=== PATIENT | female | born 1960 | race Caucasian/White ===

== ENCOUNTER → 2023-11-25 14:40 | Outpatient (REF) | payer OTHER, SELFPAY | LOC: RAD 14:40 | PROVIDERS: ATTENDING PHYSICIAN Family Medicine; REFERRING PHYSICIAN Orthopaedic Surgery | DX: M79.671 Pain in right foot (principal) | CPT/HCPCS: 73610; 73630 ==

== ENCOUNTER → 2024-09-22 13:42 | Outpatient (REF) | payer OTHER, SELFPAY | LOC: WDC 13:42 | PROVIDERS: ATTENDING PHYSICIAN Family Medicine | DX: Z12.31 Encounter for screening mammogram for malignant neoplasm of breast (principal) | CPT/HCPCS: 77063; 77067 ==

== ENCOUNTER 2025-03-10 11:09 | Emergency (ER) | payer OTHER, SELFPAY ==
[2025-03-10 11:15] VITALS: BP 148/65
[2025-03-10 11:44] LABS: Hematocrit 39.8 % (37.0-47.0); Hemoglobin 13.3 g/dL (12.0-16.0); Mean Corp Hgb Conc. 33.4 g/dL (33.0-37.0); Mean Corpuscular Volume 91.7 fL (81.0-99.0); Nucleated Red Blood Cells % 0 %; Platelet Count 218 10^3/uL (130-400); Red Cell Dist. Width 12.3 % (11.5-14.5)
[2025-03-10 12:07] LABS: ALT (SGPT) 18 U/L (0-35); AST (SGOT) 18 U/L (14-36); Albumin 4.5 g/dl (3.5-5.0); Alkaline Phosphatase 98 U/L (38-126); Blood Urea Nitrogen 16 mg/dl (7-17); Calcium 9.8 mg/dl (8.4-10.2); Carbon Dioxide 34 mmol/L (22-30); Chloride 98 mmol/L (98-107); Glucose 144 mg/dl (70-99); Lipase 71 U/L (23-300); Potassium 4.8 mmol/L (3.5-5.1); Sodium 136 mmol/L (135-145); Total Protein 7.3 g/dl (6.3-8.2); eGFR > 60.00
--- NOTE | 2025-03-10 13:42 | ED.GENMED ---
History of Present Illness
General
Chief Complaint: Abdominal Pain
Source: patient and records
Exam Limitations: none
Time Seen by Provider: 03/10/25 13:09
Nursing documentation reviewed up to this point in time: agreed with
History of Present Illness
History of Present Illness:
64-year-old female presents with left lower abdominal pain onset a few days ago after a hard sneeze, pain at the site of a prior hernia repair by Dr. Smith's had [address] Smith 1 by another physician she does remember the name,
states it was due to what sounds like a diastases after she has had no nausea no vomiting no change in her bowels really just complaining of pain worse when she moves coughs no fever or chills no trouble with her bowels tells me
that her prior imaging did not reveal any hernia but she went in for a tummy tuck apparently was visualized at the time of surgery and was referred to see a general surgeon?
Past History
Past History
ED Past Medical History: HTN, Hypercholesterolemia and NIDDM
ED Past Surgical History: , Orthopedic (left tib/fib) and Other (hernia x 3)
Social History
Tobacco: Non-smoker
Alcohol: None
Drug: None
Personal:
Living: with family
Review of Systems
Review of Systems
All Other Systems: Not applicable
Constitutional: Denies fever or chills
Cardiac: Reports no symptoms
ABD/GI: Reports abdominal pain; Denies nausea, vomiting, diarrhea, constipated, bloody stools, black stools or anorexia
: Reports no symptoms
Musculoskeletal: Reports muscle stiffness
Phy Exam
Physical Exam
Physical Exam:
Physical Exam
General: no apparent distress, not acutely ill
Neck: No jaundice
Heart: s1/s2 regular rate and rhythm, no murmur. equal radial pulses.
Lungs: no acute respiratory distress. clear bilaterally
Abdomen: Obese tender left greater than right lower abdomen horizontal scar with no obvious fascial deep
Neuro: alert and oriented. no focal neurological deficits
Skin: no rash
Psychiatric: well kept. interactive and cooperative
Extremities: no edema.
Course
Orders/Labs/Results
Orders:
Orders
03/10/25 11:29
Complete Blood Count/With Diff Urgent
Comprehensive Metabolic Panel Urgent
Lipase Urgent
03/10/25 13:34
CT Abd/pel W Iv And Oral Contr Urgent
Comment:
Reason For Exam: pain left hernia site
0.9% Sodium Chloride 1000 ml [Nss] 1,000 ml IV BOLUS
HYDROmorphone [Dilaudid] 1 mg IV NOW STA
Iohexol [Omnipaque] See Protocol PO NOW STA
Ketorolac [Toradol] 30 mg IV NOW STA
03/10/25 13:35
Ondansetron Injectable [Zofran] 4 mg IV NOW STA
03/10/25 17:35
Amoxicillin 875 mg/Clav 125 mg [Augmentin 875 mg/125 mg] 1 tablet PO NOW STA
Abnormal Lab Results
03/10/25
11:29
Carbon Dioxide 34 H mmol/L
(22-30)
Glucose 144 H mg/dl
(70-99)
03/10/25 11:29
03/10/25 11:29
Vital Signs
Initial and Last Documented VS:
Initial Vital Signs
Temp Pulse Resp BP Pulse Ox
98.2 F 66 16 148/65 98
03/10/25 11:15 03/10/25 11:15 03/10/25 11:15 03/10/25 11:15 03/10/25 11:15
Last Documented Vital Signs
Temp Pulse Resp BP Pulse Ox
98.2 F 71 16 148/65 92
03/10/25 11:15 03/10/25 14:42 03/10/25 11:15 12/10/25 11:15 03/10/25 14:42
MDM/Problems Addressed
Differential Diagnosis Includes:
Abdominal muscle strain, incisional hernia, musculoskeletal pain, prior hernia surgery less likely diverticular
MDM/Problems Addressed:
Left lower abdominal
Chronic conditions affecting care:
Prior abdominal surgery prior hernia
Chronic conditions affecting care: Previous abdomnial surgery
Acute Exacerbation and/or Progression of Chronic Illness: Previous abdomnial surgery
*Radiology
Radiology exam reviewed: radiology read reviewed
*Pulse Oximetry
SaO2: 98
Oxygen Mode of Delivery: Room air
Patient hypoxic: no
*Critical Care Note
Total Time (30-74mins, 75-104mins- exclusive of procedures): Not Applicable
Update Note
Update Note:
Update patient with no obstructive symptoms, appears all muscular, will get a CT with IV and p.o. contrast to define anatomy prior op notes x 2 reviewed will get her comfortable allergies are noted appear to be more intolerances,
5:[address] report reviewed with patient she feeling much better looks to be good candidate for outpatient follow-up
ED Attending Note
-
Portions of this chart may have been created with voice recognition software.� Occasional wrong word or��sound alike� substitutions may have occurred due to the inherent limitations of voice recognition software.
Discharge Plan
Departure
Patient Disposition: Home (Routine Discharge)
Date of Disposition: 03/10/25
Time of Disposition: 17:37
Patient with high blood pressure during this ER visit?: No
Condition: Good
Covid-19: Not Applicable
Discharge Problem:
Diverticulitis
Instructions: Abdominal Pain, Diverticulitis (DC)
Prescriptions:
No Action
glyburide 5 MG tablet
10 mg PO BID
hydrochlorothiazide 25 MG tablet
25 mg PO .IN THE AM
albuterol sulfate 1 PUFF HFA aerosol inhaler
3 puff inhalation PRN PRN (Reason: shortness of breath)
Patient Comments:
as needed
Asthmanex 220 MCG Inhaler
1 puff inhalation BID
ascorbic acid (vitamin C) [Vitamin C] 2,000 MG tablet extended release
2,000 mg PO BID
amitriptyline 50 MG tablet
50 mg PO HS
acetaminophen [Tylenol Arthritis Pain] 650 MG tablet extended release
1,300 mg PO DAILY
biotin 10,000 MCG capsule
10,000 mcg PO DAILY
zinc 50 MG tablet
50 mg PO DAILY
losartan [Cozaar] 100 MG tablet
100 mg PO .IN THE AM
boron citrate [boron] 3 MG tablet
3 tab PO DAILY
magnesium oxide 400 MG tablet
400 mg PO BID
Gymnena Mary 1,110 MG Tablet
1,110 mg PO BID
Super B Maxi Complex Caplet
1 tab PO DAILY
L.acidoph,paracasei,B.animalis 1 EACH capsule
1 ea PO DAILY
boron citrate [boron] 3 MG tablet
4 tab PO HS
acetaminophen 325 MG tablet
650 mg PO Q4HPRN PRN (Reason: mild pain) 0RF
pseudoephedrine-guaifenesin [Mucinex D] 1 EACH tablet extended release 12 hr
1 ea PO BID
oxycodone-acetaminophen [Percocet] 5-325 mg tablet
1 tab PO Q6HPRN PRN (Reason: pain) Qty: 10 0RF
methocarbamol 750 mg tablet
750 mg PO Q8H Qty: 10 0RF
Referrals:
Dea Yepez DO [Family Provider, Family Practice]
Kishor Bradshaw MD [Active, Surgical] - Next open appointment
Activity Restrictions/Additional Instructions:
Antibiotics as prescribed
Follow-up with your primary doctor and Dr. Bradshaw or his associates from general surgery
Interventions
Interventions:
*Risk Screen - Suicide Last Done: 03/10/25 11:15
*General Assessment Last Done: 03/10/25 11:15
*Neglect/Abuse Screening Last Done: 03/10/25 11:15
*ED COVID-19 Vaccine History Last Done: 03/10/25 11:15
*ED Influenza Vaccine History Last Done: 03/10/25 11:15
[facility] Fall Risk Assessment Tool Last Done: 03/10/25 14:02
EX-Drijmv-Nzkueuoigt Assessment Last Done: 03/10/25 14:00
Discharge Date and Time
Print Language: [place]
[2025-03-10 13:45] VITALS: BMI 39.5
[2025-03-10] MEDS: NSS 1000 IV (13:54)
[2025-03-10] MEDS: DILAUDID 1 MG IV (13:54)
[2025-03-10] MEDS: TORADOL 30 MG IV (13:55)
[2025-03-10] MEDS: OMNIPAQUE 50 ML PO (13:55)
[2025-03-10] MEDS: ZOFRAN 4 MG IV (13:55)
[2025-03-10] MEDS: AUGMENTIN 875 MG/125 MG 1 TABLET PO (17:51)
[2025-03-10 18:03] VITALS: BP 160/83
== END 2025-03-10 18:10 | disposition home or self-care (01) ==
LOC: EMR 11:09
PROVIDERS: Emergency Medicine; EMERGENCY PHYSICIAN Emergency Medicine; FAMILY PHYSICIAN Family Medicine
DX: K57.32 Diverticulitis of large intestine without perforation or abscess without bleeding (principal); E11.9 Type 2 diabetes mellitus without complications; I10 Essential (primary) hypertension; E78.00 Pure hypercholesterolemia, unspecified; E66.9 Obesity, unspecified; Z68.39 Body mass index [BMI] 39.0-39.9, adult; Z79.84 Long term (current) use of oral hypoglycemic drugs
CPT/HCPCS: 99284; 96374; 96375 ×2; 96361; 74177; 80053; 83690; 85025; Q9967